=== PATIENT | male | born 1950 | race Asian ===

== ENCOUNTER 2017-04-04 06:33 | Inpatient (IN) | payer OTHER ==
[2017-04-04] VITALS (18 sets, daily range): BP systolic 114–156; BP diastolic 72–100; PULSE 61–69; RESP 11–17; TEMP 98.2; Ht 162.6 cm; Wt 63.8 kg
[~2017-04-04] VITALS: Ht 162.6 cm; Wt 63.8 kg
[~2017-04-04 06:33] MED LIST: ADV25050 INHALATION; ALBU8.5H3 INH; ASPI-664 PO; GEMF600T60 PO; LORA10TA3 PO; LOSA25TA5 PO
[2017-04-04] MEDS ORDERED: ONDANSETRON (ODT) 4 MG TAB ODT STA (07:17)
--- NOTE | 2017-04-04 07:39 | ERD ---
ER Documentation Chief Complaint Date/Time DATE: 04/04/17 TIME: 07:33 Chief Complaint headache with dizziness no trauma. no neuro deficit. no blurry vision (ONEYDA VARGAS NP) HPI This is a 66-year-old male, with past medical history for hypertension, hypercholesterolemia and asthma with generalized headache and dizziness, 2 days. Headache is generalized and patient rates pain 8/10. No nausea. Had 2 episodes of nonbloody, non bilious emesis 2 days ago. No vomiting today. Denies any weakness. Patient states he has bilateral foot numbness and tingling. No loss of sensation. Patient had recent cataract surgery to right eye 6 month ago. No loss of vision or change in vision. No Diplopia or photophobia. Patient has no history of headaches and states this headache came on suddenly. Denies this being the worst headache he's ever had or thunderclap quality headache. No facial droop, neck pain, or neck stiffness. Patient reports dizziness. no syncope or presyncope. worsening dizziness with lying down. No head trauma or injury. No recent fall. (ONEYDA VARGAS NP) ROS All systems reviewed and are negative except as per history of present illness. (ONEYDA AVRGAS NP) Medications Home Meds Reported Medications Losartan Potassium* (Losartan Potassium*) 25 Mg Tablet, 25 MG PO DAILY, TAB 08/21/16 Loratadine* (Loratadine*) 10 Mg Tablet, 10 MG PO DAILY, #30 TAB 08/21/16 Gemfibrozil* (Gemfibrozil*) 600 Mg Tablet, 600 MG PO BID, TAB 08/21/16 Aspirin* (Aspirin* EC) 81 Mg Tablet.dr, 81 MG PO DAILY, TAB 08/21/16 Salmeterol Xinaf/Fluticasone* (Advair*) 250-50 Diskus Inhaler, 1 INH INHALATION BID, #1 INHALER 08/21/16 Albuterol Sulfate* (Proair HFA*) 8.5 Gm Hfa.aer.ad, 2 PUFF INH Q6H Y for WHEEZING AND SOB, #1 INHALER 08/21/16 Allergies Allergies: Coded Allergies: No Known Allergy (Unverified , 08/21/16) PMhx/Soc Medical and Surgical Hx: pt denies Surgical Hx History of Surgery: No Anesthesia Reaction: No Hx Neurological Disorder: No Hx Respiratory Disorders: Yes (ASTHMA) Hx Cardiac Disorders: Yes (HTN,HYPERLIPIDEMIA,) Hx Psychiatric Problems: No Hx Miscellaneous Medical Probl: No Hx Alcohol Use: No Hx Substance Use: No Hx Tobacco Use: No Smoking Status: Never smoker (ONEYDA VARGAS NP) Physical Exam Vitals Vital Signs Date Time Temp Pulse Resp B/P Pulse Ox O2 Delivery O2 Flow Rate FiO2 04/04/17 09:20 75 18 171/88 99 Room Air 04/04/17 08:40 72 18 186/97 99 Room Air 04/04/17 07:42 98.4 78 16 191/103 99 Room Air 04/04/17 06:37 98.3 79 21 183/98 98 (RITU BECKWITH) Physical Exam Const: Alert, [id number] Head: Atraumatic Eyes: left pupuil is round, and reactive to light. right pupil is oval shaped, fixed and non reactive to light. postoperative changes. ENT: Normal External Ears, Nose and Mouth. Neck: Full range of motion..~ No meningismus. Resp: Clear to auscultation bilaterally Cardio: Regular rate and rhythm, no murmurs Abd: Soft, non tender, non distended. Normal bowel sounds Skin: No petechiae or rashes Back: No midline or flank tenderness Ext: No cyanosis, or edema Neur: Awake and alert. strength equal to bilateral upper extremities. sensation intact. Psych: Normal Mood and Affect (ONEYDA VARGAS NP) Result Diagram: 04/04/17 0835 04/04/17 0835 Results 24 hrs Laboratory Tests Test 04/04/17 08:35 White Blood Count 7.210^3/ul Red Blood Count 4.4810^6/ul Hemoglobin 14.3g/dl Hematocrit 42.6% Mean Corpuscular Volume 95.1fl Mean Corpuscular Hemoglobin 31.9pg Mean Corpuscular Hemoglobin Concent 33.6g/dl Red Cell Distribution Width 11.9% Platelet Count 45294^3/UL Mean Platelet Volume 10.5fl Neutrophils % 76.6% Lymphocytes % 17.4% Monocytes % 4.6% Eosinophils % 0.6% Basophils % 0.4% Nucleated Red Blood Cells % 0.0/100WBC Neutrophils # 5.510^3/ul Lymphocytes # 1.310^3/ul Monocytes # 0.310^3/ul Eosinophils # 0.010^3/ul Basophils # 0.010^3/ul Nucleated Red Blood Cells # 0.010^3/ul Sodium Level 139mmol/L Potassium Level 4.6mmol/L Chloride Level 98mmol/L Carbon Dioxide Level 29mmol/L Anion Gap 17 Blood Urea Nitrogen 17mg/dl Creatinine 0.84mg/dl Glucose Level 118mg/dl Calcium Level 9.9mg/dl Total Bilirubin 0.7mg/dl Direct Bilirubin 0.00mg/dl Indirect Bilirubin 0.7mg/dl Aspartate Amino Transf (AST/SGOT) 25IU/L Alanine Aminotransferase (ALT/SGPT) 32IU/L Alkaline Phosphatase 69IU/L Total Protein 8.4g/dl Albumin 4.8g/dl Globulin 3.60g/dl Albumin/Globulin Ratio 1.33 Current Medications Medications (Trade) Dose Ordered Sig/Stacia Route PRN Reason Start Time Stop Time Status Last Admin Dose Admin Ondansetron HCl (Zofran Odt) 4 mg ONCE STAT ODT 04/04/17 07:17 04/04/17 07:18 DC 04/04/17 07:25 Losartan Potassium 50 mg 50 mg ONCE ONCE PO 04/04/17 08:00 04/04/17 08:01 DC 04/04/17 08:05 Levetiracetam (Keppra 500 Mg/ 100ml (Pmx)) 100 ml @ 400 mls/hr ONCE STAT IVPB 04/04/17 08:28 04/04/17 08:42 DC 04/04/17 08:54 Labetalol HCl (Labetalol) 20 mg ONCE ONCE IV 04/04/17 09:30 04/04/17 09:31 DC 04/04/17 09:22 (RITU BECKWITH) Procedures/MDM Patient: MELODY ARREOLA : 1950 Age: 66 Sex: M MR #: [id number] DOS: 04/04/17 0717 Ordering MD: ONEYDA VARGAS NP Location: [facility] Room/Bed: PROCEDURE: CT Brain without contrast. CLINICAL INDICATION: Neurologic deficit TECHNIQUE: A CT of the brain was performed on multidetector high-resolution CT scanner utilizing axial sections from the skull base through the vertex without contrast. One or more of the following dose reduction techniques were used: Automated exposure control, Adjustment of the mA and/or kV according to patient size, and/or use of iterative reconstruction technique. DOSE: CTDI = 50 mGy and the DLP = 818 mGy-cm. COMPARISON: None available FINDINGS: Bilateral cerebral convexity hyperdense subdural hematomas measuring 19 mm on the right and 12 mm on the left. There is subfalcine herniation of the right cingulate gyrus and 5 mm leftward midline shift. The lateral and third ventricles are compressed. Old right cerebellar infarct noted. The cerebral albarran-white differentiation is grossly preserved. Paranasal sinus mucosal thickening. IMPRESSION: Bilateral acute/subacute cerebral convexity subdural hematomas measuring 19 mm on the right and 12 mm on the left. There is subfalcine herniation of the right cingulate gyrus and 5 mm leftward midline shift. Chronic right cerebellar infarct. A critical call report attempt was made to Dr. VARGAS at 04/04/2017 8:21:59 AM who was not available at this time. Findings discussed with MT Cabello. MDM: 66-year-old male, with past medical history for hypertension, hypercholesterolemia and asthma, presents to the emergency department for generalized headache with dizziness 2 days. Patient has no history of headaches. This headache came on suddenly. Physical exam reveals fixed right pupil. Strength equal bilateral to upper extremities. No nausea or vomiting. BP upon arrival 183/98 mm Hg then 191/103 mm Hg. Patient takes Losartan at home and did not take this this morning. Given patient Losartan 50 mg P.O while in the ED for elevated BP. Consulted Dr. Beckwith regarding this patient who also examined patient at bedside. Instructed to order CT head and oral Zofran [address] head reviewed by radiologist as bilateral acute cerebral convexity subdural hematomas measuring 19mm on the right and 12mm on the left. 5 mm leftward midline shift. Discussed findings with Dr. Beckwith. Patient will be moved to ED1 for additional management and higher level of care. (ONEYDA VARGAS NP) After evaluating the patient with the MT, patient went to CT scan. CT was reviewed demonstrating evidence of bilateral subdural hematomas. Patient was then transferred to the main emergency department where he was placed on manager cardiac cath and pulse oximetry observation. He was noted to be hypertensive. This was treated with labetalol. His blood pressure began to respond. Neurologically, patient remains awake, alert, oriented with a GCS of 15. He has a nonfocal motor and sensory examination with no focal neurologic findings. Consultations: Neurosurgical consultation was obtained Hospitalist consultation was obtained for admission. Diagnostic impression: Bilateral subdural hematomas Hypertension Aspirin therapy Medical decision makin-year-old male on aspirin therapy presents essentially with an atraumatic bilateral subdural hematoma that appears to be subacute/chronic in nature. He does however demonstrate evidence of fairly significant findings on a CT scan that will require operative management likely. Patient will require admission to the hospital for blood pressure control, consideration of platelet transfusion. In my conversations with the neurosurgeon, emergent platelet transfusion will not be ordered at this time given the chronicity of the patient 's subdurals. Coagulation profile is pending at this time, but patient tells me he is on no further anticoagulant medications. Patient will continue to be admitted for further evaluation. Critical care time greater than 35 minutes maintaining control of the patient's hemodynamic and neurologic status. (RITU BECKWITH) Departure Diagnosis: Primary Impression: Subdural hematoma Condition: Serious ONEYDA VARGAS NP April 04, 2017 07:39 RITU BECKWITH April 04, 2017 09:56
[2017-04-04] MEDS ORDERED: LOSARTAN 50 MG TAB PO ONE (08:00)
--- NOTE | 2017-04-04 08:25 | RADRPT ---
PROCEDURE: CT Brain without contrast. CLINICAL INDICATION: Neurologic deficit TECHNIQUE: A CT of the brain was performed on multidetector high-resolution CT scanner utilizing a xial sections from the skull base through the vertex without contrast. One or more of the following dose reduction techniques were used: Automated exposure control, Adjustment of the mA and/or kV acc ording to patient size, and/or use of iterative reconstruction technique. DOSE: CTDI = 50 mGy and the DLP = 818 mGy-cm. COMPARISON: None available FINDINGS: Bilateral cerebral convexity hyperdense subdural hematomas measuring 19 mm on the right and 12 mm on the left. There is subfalcine herniation of the right cingulate gyrus and 5 mm leftward midline sh ift. The lateral and third ventricles are compressed. Old right cerebellar infarct noted. The cere bral albarran-white differentiation is grossly preserved. Paranasal sinus mucosal thickening. IMPRESSION: Bilateral acute/subacute cerebral convexity subdural hematomas measuring 19 mm on the right and 12 m m on the left. There is subfalcine herniation of the right cingulate gyrus and 5 mm leftward midlin e shift. Chronic right cerebellar infarct. A critical call report attempt was made to Dr. VARGAS at 04/04/2017 8:21:59 AM who was not available at this time. Findings discussed with MT Cabello. RPTAT: AA .Matheus Hope MD, MD Date Time Electronically viewed and signed by .Matheus Hope MD, MD on 04/04/2017 08:24 .T/
[2017-04-04] MEDS ORDERED: LEVETIRACETAM 500 MG (PMX) 100 ML IVPB STA (08:28)
[2017-04-04 08:43] LABS: ADD SCAN DIFF NO
[2017-04-04 09:13] LABS: ALBUMIN 4.8 g/dl (3.3-4.9); POTASSIUM 4.6 mmol/L (3.5-5.1)
[2017-04-04 09:16] LABS: ALBUMIN/GLOBULIN RATIO 1.33; BILIRUBIN,INDIRECT 0.7 mg/dl (0-1.1); BILIRUBIN,TOTAL 0.7 mg/dl (0.2-1.3); CALCIUM 9.9 mg/dl (8.4-10.2); CREATININE 0.84 mg/dl (0.61-1.24); TOTAL PROTEIN 8.4 g/dl (6.1-8.1)
[2017-04-04 09:23] LABS: BASOPHILS % 0.4 % (0.0-2.0); EOSINOPHILS % 0.6 % (0.0-7.0); HEMATOCRIT 42.6 % (42.0-52.0); HEMOGLOBIN 14.3 g/dl (14.0-18.0); LYMPHOCYTES # 1.3 10^3/ul (0.8-2.9); LYMPHOCYTES % 17.4 % (15.0-51.0); MEAN CORPUSCULAR HEMOGLOBIN 31.9 pg (29.0-33.0); MEAN CORPUSCULAR HGB CONC 33.6 g/dl (32.0-37.0); MEAN CORPUSCULAR VOLUME 95.1 fl (82.0-101.0); MEAN PLATELET VOLUME 10.5 fl (7.4-10.4); MONOCYTE # 0.3 10^3/ul (0.3-0.9); MONOCYTES % 4.6 % (0.0-11.0); NEUTROPHIL # 5.5 10^3/ul (1.6-7.5); NEUTROPHILS % 76.6 % (39.0-77.0); PLATELET COUNT 294 10^3/UL (140-415); RED BLOOD COUNT 4.48 10^6/ul (4.70-6.10); RED CELL DISTRIBUTION WIDTH 11.9 % (11.5-14.5); WHITE BLOOD COUNT 7.2 10^3/ul (4.8-10.8)
[2017-04-04] MEDS ORDERED: LABETALOL HCL 20MG INJ IV ONE ×2 (09:30→10:00)
--- NOTE | 2017-04-04 09:39 | RADRPT ---
PROCEDURE: XR Chest. CLINICAL INDICATION: Headache TECHNIQUE: Chest AP portable. COMPARISON: No comparison available. FINDINGS: The mediastinal structures are unremarkable. The heart is normal in size and configuration. The pu lmonary vascularity is normal. The lung gonzales are unremarkable. No consolidation is identified. The pleural spaces are unremarkable. The axial skeleton is unremarkable. IMPRESSION: No active intrathoracic disease. RPTAT: HGDB .Jac Singh MD, MD Date Time Electronically viewed and signed by .Jac Singh MD, on 04/04/2017 09:38 .B/
[2017-04-04 10:25] LABS: INR 0.98
[2017-04-04 10:26] LABS: PARTIAL THROMBOPLASTIN TIME 27.8 Sec (25.0-35.0)
[2017-04-04] MEDS ORDERED: LABETALOL HCL 20MG INJ IV PRN (12:30)
[2017-04-04] MEDS ORDERED: ACETAMINOPHEN 325 MG TAB PO PRN (12:30)
[2017-04-04] MEDS ORDERED: ALBUTEROL/IPRATROPIUM (NEB) 3 ML AMP HHN PRN (12:30)
[2017-04-04] MEDS ORDERED: ONDANSETRON 4 MG INJ IV PRN (12:30)
[2017-04-04] MEDS ORDERED: HYDROCODONE/APAP (5/325) TAB PO PRN (12:30)
[2017-04-04] MEDS ORDERED: DOCUSATE SODIUM 100 MG CAP PO PRN (12:30)
[2017-04-04] MEDS ORDERED: NACL 0.9% 3 ML SYG IV SCH (12:30)
[2017-04-04] MEDS: DEXTROSE 5%-0.45% NACL 1,000 ML IV SCH ×2 (12:31→23:55)
[2017-04-04] MEDS: morphine 2 MG INJ IV PRN ×3 (13:08→20:42)
[2017-04-04 13:15] LABS: COLLAGEN/ADP 89 Secs. (40-147)
--- NOTE | 2017-04-04 14:13 | CONS ---
DATE OF ADMISSION: 04/04/2017 DATE OF CONSULTATION: 04/04/2017 TYPE OF CONSULTATION: NEUROSURGICAL CONSULT REQUESTING PHYSICIAN: Dr. Beckwith INDICATION FOR CONSULTATION: Subdural hematomas. HISTORY OF PRESENT ILLNESS: The patient is a 66-year-old right-handed male with history of hypertension, asthma, hypercholesterolemia, with complaints of headache, dizziness, nausea and vomiting for 2 days. The patient reports a diffuse headache 7 to 8/10 in severity. The patient reportedly fell at work yesterday, according to the patient's and the patient. The patient reportedly did not have any symptoms prior to this fall and denies having any trauma prior to this fall. He did not lose consciousness, per report. The patient currently denies any numbness, tingling, weakness, bowel or bladder issues. The family states that he normally alert and has normal mental status. The patient does not have any significant history of prior headaches. CT of the head showed bilateral subdural hematomas, subacute, right greater than left with right to left shift. REVIEW OF SYSTEMS: A 12-point review of systems performed. Pertinent positives and negatives listed in history of present illness and below. CONSTITUTIONAL: Denies fevers, chills, or weight loss. HEMATOLOGIC: Denies history of easy bruising or bleeding. MEDICATIONS: Patient's medications include: 1. Losartan 25 mg p.o. daily. 2. Loratadine 10 mg daily. 3. Gemfibrozil 600 mg b.i.d. 4. Aspirin 81 mg p.o. daily. 5. Advair 1 inhalation b.i.d. 6. Albuterol ProAir HFA 8.5 mg 2+ q.6h. ALLERGIES: NO KNOWN DRUG ALLERGIES. PAST SURGICAL HISTORY: Denies. PAST MEDICAL HISTORY: Asthma, hypertension, hyperlipidemia. SOCIAL HISTORY: The patient is a nonsmoker, nondrinker. Denies illicit drug use. The patient is . PHYSICAL EXAMINATION: VITAL SIGNS: The patient's temperature is 98.2, pulse 64, respirations 18, blood pressure 129/75, saturating 100% on room air. GENERAL: The patient is a well-developed, well-nourished elderly male lying in the hospital bed in no acute distress. HEAD AND NECK: The patient is normocephalic, atraumatic. He has no Valle sign , periorbital ecchymoses, otorrhea, or rhinorrhea. CARDIAC: Regular rate and rhythm. LUNGS: Clear to auscultation. ABDOMEN: Nontender, nondistended, soft. EXTREMITIES: No clubbing, cyanosis, or edema. NEUROLOGIC: The patient is awake, alert, and oriented x3. He is somnolent and will fall asleep, but when awakened, he is attentive, alert, and follows commands readily and appropriately. He speaks primarily Tagalog and his family helps translate, though he does understand Greenlandic. Cranial nerves II through XII are serially tested and are intact, specifically II: Visual gonzales grossly full to confrontation and grossly normal visual acuity. Cranial nerves III, IV , and : Patient's pupils are reactive, but he has some anisocoria, as he had recent cataract surgery on his right eye which is slightly irregular but reactive, 5 to 4 mm and on the left it is 3 to 2 mm. Cranial nerve V: Normal facial sensation bilaterally. Cranial nerve VII: Face symmetrical dynamically and statically. Cranial nerve VIII: Grossly normal auditory acuity to normal voice and finger rub. Cranial nerve IX: Symmetrical palate raise. Cranial nerve X: Symmetrical palate raise. Cranial nerve XI: There is 5/5 sternocleidomastoid shoulder shrug. Cranial nerve XII: No tongue deviation when protruded. MOTOR: Examination is 5/5 bilateral upper and lower extremities. He does not have a pronator drift. Sensation is grossly intact to light touch and deep tendon reflexes were 2+ throughout. He has no clonus, Babinski, or Gilberto sign. Gait not assessed secondary to condition. LABORATORIES: Sodium 139, BUN and creatinine was 17 and 0.84. His glucose 118. Coagulation profile: PT was 13 with an INR of 0.98 and an APTT of 27.8. His white count was 7.2, hemoglobin 13.4, platelets 294. There is no shift. REVIEW OF RADIOGRAPHIC RESULTS: I reviewed the patient's CT scan as well as the radiologist's report. The CT scan performed today showed bilateral acute/ subacute convexity subdural hematomas measuring 19 mm on the right and 12 mm on the left. There is subfalcine herniation of the right cingulate gyrus and a 5 mm leftward midline shift. The patient has evidence of a chronic right cerebellar infarct. I agree with this interpretation. However, I would not classify the blood present as being acute in nature. This appears to be subacute, as I did not see any large acute blood. I did not see any clear how membranes present and the right subdural is larger than the left subdural. ASSESSMENT AND PLAN: A 66-year-old male with bilateral subdural hematomas. I discussed the patient's signs, symptoms, physical examination and radiographic findings with him and his family. The patient has a subdural hematoma that is causing the likely source of his symptoms. I would like an MRI on the patient to better assess for the subdural space; however, there does not appear to be any underlying mass or lesion that may have caused this. The subdural hematoma appears subacute and I doubt that this occurred from a trauma that reportedly occurred yesterday. It is not clear if the aspirin that the patient is on is likely potentiating his bleeding; however, I would like to check a platelet function assay to assess the patient's platelet function. I explained that these lesions at this size likely would not improve without surgical intervention definitely for the right lesion. I discussed the treatment with steroids is a possibility, but given the size and the mass effect, I would not leave treatment simply with this modality, and believe surgical intervention is indicated. I believe the muarice holes may be adequate, given the subacute nature of the bleed, although a craniotomy may be necessary, especially on the right. I discussed the risks, benefits, alternatives of surgical intervention for this patient. Currently, the patient appears stable. We will continue with ICU observation and depending on the patient's platelet function analysis, I will give platelets if it is abnormal and recheck tomorrow. Otherwise, the patient will likely go to the OR tomorrow if his platelet function assay appears to be within normal limits. Obviously, if the patient clinically changes, reconsideration for taking the patient sooner will be given. The patient and his family express understanding and agreement with this plan of care. Dictated By: PATRICIA HIGUERA MD, LG/CIELO Conf#: [id number] DID#: [id number] CC: RITU BECKWITH;*EndCC* MTDD
--- NOTE | 2017-04-04 15:54 | RADRPT ---
PROCEDURE: MR Brain without contrast. CLINICAL INDICATION: Subdural hematoma TECHNIQUE: An MRI of the brain was performed on a high-resolution MR scanner utilizing the followi ng sequences: Sagittal and axial T1 weighted, axial T2 weighted, axial FLAIR, coronal GRE, and axial diffusion weighted with ADC mapping. Images were reviewed high-resolution PACS workstation. No con trast was administered. COMPARISON: Head CT earlier today FINDINGS: Bilateral cerebral convexity mixed signal subdural hematomas measuring 19 mm on the right and 12 mm on the left are similar size to the CT head earlier today. There is bilateral cerebral sulcal efface ment, subfalcine herniation of the right cingulate gyrus and 5 mm leftward midline shift. The latera l and third ventricles are compressed. Old right cerebellar infarct noted. No evidence of an acute i nfarct. The cerebral albarran-white differentiation is grossly preserved. The major proximal intracrani al flow voids are intact suggesting there patency. Paranasal sinus mucosal thickening. The right oc ular lens is thin which could be due to prior lens replacement surgery. IMPRESSION: Bilateral subacute cerebral convexity subdural hematomas measuring 19 mm on the right and 12 mm on t he left. There is bilateral cerebral sulcal effacement, subfalcine herniation of the right cingulate gyrus and 5 mm leftward midline shift. Chronic right cerebellar infarct. No evidence of an acute infarct. RPTAT: AA .Mathesu Hope MD, MD Date Time Electronically viewed and signed by .Matheus Hope MD, on 04/04/2017 15:53 .T/
[2017-04-04] MEDS: LABETALOL HCL 20MG INJ IV PRN (16:24)
--- NOTE | 2017-04-04 17:50 | HP ---
DATE OF ADMISSION: 04/04/2017 CHIEF COMPLAINT: Headache, or dizziness. HISTORY OF PRESENT ILLNESS: The patient is a 66-year-old male with a history of hypertension and dy slipidemia and as the patient presents with headache, dizziness for 2 days now. The headache is gen eralized. The patient has no nausea. He does state that he hit his head the other day while walkin g. He did not fall he just hit his head on top of an overpass as he was walking. The patient had a brain CT that showed bilateral subacute subdural hematomas. There is some subfalcine herniation of the right cingulate gyrus and 5 mm left midline shift. There is chronic right cerebellar infarct n oted. The patient was seen by Dr. Blankenship who is currently recommending surgical intervention with bur hole placement. The patient has no other complaints at this time. The family denies any change in mentation. PAST MEDICAL HISTORY: Hypertension. PAST SURGICAL HISTORY: Cataract surgery. HOME MEDICATIONS: 1. Albuterol. 2. Aspirin. 3. Gemfibrozil. 4. Loratadine. 5. Losartan. 6. Advair. ALLERGIES: KNOWN DRUG ALLERGIES. FAMILY HISTORY: Noncontributory. SOCIAL HISTORY: Denies any alcohol, tobacco or drugs. REVIEW OF SYSTEMS: A 12-point review of systems negative except as mentioned in HPI. PHYSICAL EXAMINATION: VITAL SIGNS: Temperature is 97.6, pulse 66, respiratory rate 13, BP is 155/84, saturation 100% on 2 liters. GENERAL: No acute distress, alert, somewhat oriented to where he is. Ultimately disoriented to the year. HEENT: Normocephalic, atraumatic. Pupils equal, round, reactive to light. LUNGS: Clear to auscultation. CARDIOVASCULAR: Regular rate and rhythm. ABDOMEN: Nondistended, nontender, soft. EXTREMITIES: No clubbing, cyanosis, or edema. LABORATORIES: Hemoglobin 7.3, hemoglobin is 14.3, platelets are 294. Chemistry within normal limit s except for anion gap 17, total protein 8.4. INR is 0.98. DIAGNOSTICS: Brain CT, once again, shows bilateral acute/subacute cerebral convexity subdural hemat zack measuring 19 mm in the right and 12 mm on the left. There is a subfalcine herniation on the rig ht cingulate gyrus and a 5 mm leftward midline shift, chronic right cerebellar infarct noted. Chest x-ray shows no active disease. ASSESSMENT AND PLAN: 1. Bilateral subdural hematomas. The patient has already been evaluated by neurosurgery with plans for bur hole placement. The patient is on aspirin. Aspirin will be held. The patient will have a platelet function analysis test. The patient will likely go to OR tomorrow if platelet function as say appears to be within normal limits. Will give Keppra for seizure prophylaxis. Keep the patient n.p.o. 2. Hypertension. The patient's blood pressure is currently stable. Give labetalol p.r.n. Keep the patient n.p.o. 3. Prophylaxis. Sequential compression devices. Dictated By: DAVID DUMONT/CIELO Conf#: [id number] DID#: [id number]
[2017-04-04] MEDS: LEVETIRACETAM 500 MG (PMX) 100 ML IVPB SCH (20:56)
[2017-04-04] MEDS ORDERED: SOD CHLORIDE 0.9% 250 ML IV* ONE (23:03)
[2017-04-05] VITALS (38 sets, daily range): BP systolic 109–169; BP diastolic 64–107; PULSE 59–90; RESP 9–24
[2017-04-05 05:39] LABS: ADD SCAN DIFF NO
[2017-04-05 05:53] LABS: BASOPHILS % 0.3 % (0.0-2.0); EOSINOPHILS # 0.1 10^3/ul (0.0-0.5); EOSINOPHILS % 0.8 % (0.0-7.0); HEMOGLOBIN 13.1 g/dl (14.0-18.0); LYMPHOCYTES # 1.4 10^3/ul (0.8-2.9); LYMPHOCYTES % 20.2 % (15.0-51.0); MEAN CORPUSCULAR HEMOGLOBIN 32.3 pg (29.0-33.0); MEAN CORPUSCULAR HGB CONC 34.5 g/dl (32.0-37.0); MEAN CORPUSCULAR VOLUME 93.6 fl (82.0-101.0); MEAN PLATELET VOLUME 10.3 fl (7.4-10.4); MONOCYTE # 0.4 10^3/ul (0.3-0.9); MONOCYTES % 5.9 % (0.0-11.0); NEUTROPHIL # 5.2 10^3/ul (1.6-7.5); NEUTROPHILS % 72.5 % (39.0-77.0); PLATELET COUNT 297 10^3/UL (140-415); RED BLOOD COUNT 4.06 10^6/ul (4.70-6.10); RED CELL DISTRIBUTION WIDTH 11.7 % (11.5-14.5); WHITE BLOOD COUNT 7.1 10^3/ul (4.8-10.8)
[2017-04-05 06:13] LABS: CHOL/HDL RATIO 3.2 RATIO; CREATININE 0.71 mg/dl (0.61-1.24); PHOSPHORUS 2.9 mg/dl (2.5-4.9); POTASSIUM 3.7 mmol/L (3.5-5.1)
[2017-04-05] MEDS: morphine 2 MG INJ IV PRN ×2 (06:49→10:36)
[2017-04-05] MEDS ORDERED: ROCURONIUM 50 MG INJ ONE (07:00)
[2017-04-05] MEDS ORDERED: CEFAZOLIN 1 GM INJ ONE (07:00)
[2017-04-05] MEDS ORDERED: SUCCINYLCHOLINE CHLORIDE 100 MG/5 ML SYG IV ONE (07:00)
[2017-04-05] MEDS: LEVETIRACETAM 500 MG (PMX) 100 ML IVPB SCH ×2 (08:19→20:29)
--- NOTE | 2017-04-05 08:59 | CONS ---
Date/Time of Note Date/Time of Note DATE: 04/05/17 TIME: 08:54 Assessment/Plan Assessment/Plan Chief Complaint/Hosp Course 66 year-old male with bilateral subacute subdural hematomas. Had been on ASA 81 mg; initial PFA elevated. Given platelets and repeat corrected. D/W family and patient risk, benefits and alternative of surgery and theyexpressed understanding and agreement with this plan of care. . Will go to OR later today for bilateral maurice holes. Problems: Consultation Date/Type/Reason Admit Date/Time April 04, 2017 at 09:46 Initial Consult Date 24 HR Interval Summary Free Text/Dictation Patient reports stable headache. Denies nausea, vomiting or weakness. 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2 Monocytes % 5.9 Eosinophils % 0.8 Basophils % 0.3 Nucleated Red Blood Cells % 0.0 Neutrophils # 5.2 Lymphocytes # 1.4 Monocytes # 0.4 Eosinophils # 0.1 Basophils # 0.0 Nucleated Red Blood Cells # 0.0 Sodium Level 139 Potassium Level 3.7 Chloride Level 100 Carbon Dioxide Level 26 Anion Gap 17 H Blood Urea Nitrogen 15 Creatinine 0.71 Glucose Level 126 Hemoglobin A1c 5.8 Calcium Level 9.0 Phosphorus Level 2.9 Magnesium Level 2.0 Triglycerides Level 91 Cholesterol Level 135 LDL Cholesterol, Calculated 75 HDL Cholesterol 42 Cholesterol/HDL Ratio 3.2 Lab Scanned Report BLOOD TRANSFUSION Medications Medications Current Medications Dextrose/Sodium Chloride (D5-1/2ns) 1,000 ml @ 100 mls/hr Q10H IV Last administered on 04/04/17 23:55; Admin Dose 100 MLS/HR; Start 04/04/17 at 12:06 Ondansetron HCl (Zofran Inj) 4 mg Q6H PRN IV NAUSEA AND/OR VOMITING; Start at 12:30 Acetaminophen (Tylenol Tab) 650 mg Q6H PRN PO PAIN LEVEL 1-3 OR FEVER; Start at 12:30 Acetaminophen/ Hydrocodone Bitart ([place] (5/325)) 1 tab Q6H PRN PO MODERATE PAIN LEVEL 4-6; Start 04/04/17 at 12:30 Morphine Sulfate (morphine) 2 mg Q4H PRN IV SEVERE PAIN LEVEL 7-10 Last administered on 04/05/17 06:49; Admin Dose 2 MG; Start 04/04/17 at 12:30 Docusate Sodium (Colace) 100 mg Q12H PRN PO CONSTIPATION; Start 04/04/17 at 12: 30 Zolpidem Tartrate 5 mg 5 mg QHS PRN PO SLEEP; Start 04/04/17 at 12:30 Levetiracetam (Keppra 500 Mg/ 100ml (Pmx)) 100 ml @ 400 mls/hr Q12 IVPB Last administered on 04/05/17 08:19; Admin Dose 400 MLS/HR; Start 04/04/17 at 21:00 Labetalol HCl (Labetalol) 20 mg Q2H PRN IV SBP >150 Last administered on 16:24; Admin Dose 20 MG; Start 04/04/17 at 14:30 Procedures Procedures MRI reviewed. Stable SDH bilaterally, no significant membranes. No other lesions. PATRICIA HIGUERA MD April 05, 2017 08:59
[2017-04-05] MEDS: DEXTROSE 5%-0.45% NACL 1,000 ML IV SCH ×2 (10:00→18:22)
[2017-04-05] MEDS ORDERED: BUPIVACAINE 0.5%/EPI (SDV) 30 ML INJ ONE (13:01)
[2017-04-05] MEDS ORDERED: GELATIN SIZE 100 SPONGE ONE (13:01)
[2017-04-05] MEDS ORDERED: BACITRACIN/POLYMYXIN 28.35 GM OINT TOP ONE (13:02)
[2017-04-05] MEDS ORDERED: THROMBIN 5000 UNIT VIAL ONE (13:02)
[2017-04-05] MEDS ORDERED: PROPOFOL 20 ML ONE (13:12)
[2017-04-05] MEDS ORDERED: LIDOCAINE 2% (SDV) 5 ML INJ ONE (13:12)
[2017-04-05] MEDS: LABETALOL HCL 20MG INJ IV PRN (13:15)
--- NOTE | 2017-04-05 13:21 | HPN ---
Date/Time of Note Date/Time of Note DATE: 04/05/17 TIME: 13:21 Interval H&P Admission Note Pt. seen H&P reviewed: No system changes PATRICIA HIGUERA MD April 05, 2017 13:21
[2017-04-05] MEDS ORDERED: ONDANSETRON 4 MG INJ ONE (14:45)
[2017-04-05] MEDS ORDERED: DEXAMETHASONE 4 MG/ML 1 ML INJ ONE (14:45)
[2017-04-05] MEDS ORDERED: NEOSTIGMINE 3 MG/3 ML SYRINGE ONE (15:10)
[2017-04-05] MEDS ORDERED: GLYCOPYRROLATE 0.4 MG INJ ONE (15:10)
[2017-04-05] MEDS ORDERED: ONDANSETRON 4 MG INJ IV PRN (15:30)
[2017-04-05] MEDS ORDERED: HYDROmorphONE 1 MG/ML SYG IV PRN (15:30)
[2017-04-05] MEDS ORDERED: hydrALAzine 20 MG INJ IV PRN (15:30)
[2017-04-05] MEDS ORDERED: FENTAnyl 50 MCG/ML VIAL IV PRN (15:30)
--- NOTE | 2017-04-05 16:58 | OPR ---
Date/Time of Note Date/Time of Note DATE: 04/05/17 TIME: 16:55 Operative Report Procedure Date: April 05, 2017 Preoperative Diagnosis bilateral subacute subdural hematomas Postoperative Diagnosis bilateral subacute subdural hematomas Operation Performed 1. [place] holes for evacuation of right subdural hematoma. 2. [place] holes for evacuation of left subdural hematoma. Surgeon: PATRICIA HIGUERA MD Anesthesia: general Anesthesiologist: KIMMY ANDREA MD Estimated Blood Loss: 10 - 50 ml's Specimens none Tubes/Drains bilateral subdural drains. Complications: None Pt Condition Post Procedure: stable Disposition: PACU Operative\Procedure Findings bilateral subacute subdural hematomas. PATRICIA HIGUERA MD April 05, 2017 16:58
[2017-04-05] MEDS ORDERED: CEPASTAT LOZENGE MT PRN (17:00)
[2017-04-05] MEDS ORDERED: DIPHENHYDRAMINE 50 MG INJ IV PRN (17:00)
[2017-04-05] MEDS ORDERED: DIPHENHYDRAMINE 25 MG CAP PO PRN (17:00)
[2017-04-05] MEDS ORDERED: ACETAMINOPHEN 325 MG TAB PO PRN (17:00)
--- NOTE | 2017-04-05 17:40 | PN ---
Date/Time of Note Date/Time of Note DATE: 04/05/17 TIME: 17:38 Assessment/Plan VTE Prophylaxis VTE Prophylaxis Intervention: SCD's Lines/Catheters IV Catheter Type (from Nrs): Peripheral IV Assessment/Plan Chief Complaint/Hosp Course 1. Bilateral subdural hematomas status bilateral rales postop day #0 Follow-up with neurosurgery recommendations Continue Keppra 2. Hypertension-stable Continue labetalol as needed 3. Prophylaxis-Sequential compression devices Problems: Subjective 24 Hr Interval Summary Constitutional: no complaints Exam/Review of Systems Vital Signs Vitals Vital Signs Date Time Temp Pulse Resp B/P Pulse Ox O2 Delivery O2 Flow Rate FiO2 04/05/17 16:00 86 04/05/17 13:15 15 153/87 96 Room Air 04/05/17 12:00 97.8 04/05/17 06:00 2.0 Intake and Output 04/04/17 04/04/17 04/05/17 15:00 23:00 07:00 Intake Total 250 ml 800 ml 755 ml Output Total 570 ml 440 ml 740 ml Balance -320 ml 360 ml 15 ml Exam Constitutional: alert Respiratory: clear to auscultation Cardiovascular: regular rate and rhythm Gastrointestinal: soft, No distended Musculoskeletal: nl extremities to inspection Results Result Diagram: 04/05/17 0445 04/05/17 0445 Results 24 hrs Laboratory Tests Test 04/05/17 04:45 04/05/17 05:42 White Blood Count 7.1 Red Blood Count 4.06 L Hemoglobin 13.1 L Hematocrit 38.0 L Mean Corpuscular Volume 93.6 Mean Corpuscular Hemoglobin 32.3 Mean Corpuscular Hemoglobin Concent 34.5 Red Cell Distribution Width 11.7 Platelet Count 297 Mean Platelet Volume 10.3 Neutrophils % 72.5 Lymphocytes % 20.2 Monocytes % 5.9 Eosinophils % 0.8 Basophils % 0.3 Nucleated Red Blood Cells % 0.0 Neutrophils # 5.2 Lymphocytes # 1.4 Monocytes # 0.4 Eosinophils # 0.1 Basophils # 0.0 Nucleated Red Blood Cells # 0.0 Platelet Func Collagen/Epinephrine 139 Platelet Function Collagen/ADP Sodium Level 139 Potassium Level 3.7 Chloride Level 100 Carbon Dioxide Level 26 Anion Gap 17 H Blood Urea Nitrogen 15 Creatinine 0.71 Glucose Level 126 Hemoglobin A1c 5.8 Calcium Level 9.0 Phosphorus Level 2.9 Magnesium Level 2.0 Triglycerides Level 91 Cholesterol Level 135 LDL Cholesterol, Calculated 75 HDL Cholesterol 42 Cholesterol/HDL Ratio 3.2 Lab Scanned Report BLOOD TRANSFUSION Medications Medications Current Medications Ondansetron HCl (Zofran Inj) 4 mg Q6H PRN IV NAUSEA AND/OR VOMITING; Start at 12:30 Acetaminophen/ Hydrocodone Bitart ([place] (5/325)) 1 tab Q6H PRN PO MODERATE PAIN LEVEL 4-6; Start 04/04/17 at 12:30 Morphine Sulfate (morphine) 2 mg Q4H PRN IV SEVERE PAIN LEVEL 7-10 Last administered on 04/05/17 10:36; Admin Dose 2 MG; Start 04/04/17 at 12:30 Docusate Sodium (Colace) 100 mg Q12H PRN PO CONSTIPATION; Start 04/04/17 at 12: 30 Zolpidem Tartrate 5 mg 5 mg QHS PRN PO SLEEP; Start 04/04/17 at 12:30 Levetiracetam (Keppra 500 Mg/ 100ml (Pmx)) 100 ml @ 400 mls/hr Q12 IVPB Last administered on 04/05/17 08:19; Admin Dose 400 MLS/HR; Start 04/04/17 at 21:00 Labetalol HCl 20 mg 20 mg Q2H PRN IV SBP >150 Last administered on 04/05/17 13 :15; Admin Dose 20 MG; Start 04/04/17 at 14:30 Cefazolin Sodium/ Dextrose (Ancef 2 Gm/50 ml (Pmx)) 50 ml @ 100 mls/hr Q8 IVPB ; Start 04/05/17 at 19:00 Morphine Sulfate (morphine) 2 mg Q2H PRN IV PAIN LEVEL 6-10; Start 04/05/17 at 17:00; Status UNV Acetaminophen/ Hydrocodone Bitart ([place] (5/325)) 1 tab Q6H PRN PO PAIN LEVEL 6 -10; Start 04/05/17 at 17:00; Status UNV Acetaminophen (Tylenol Tab) 650 mg Q6H PRN PO PAIN AND OR ELEVATED TEMP; Start 04/05/17 at 17:00 Diphenhydramine HCl (Benadryl) 25 mg Q6H PRN IV ITCHING; Start 04/05/17 at 17: 00; Status UNV Diphenhydramine HCl (Benadryl) 25 mg Q6H PRN PO ITCHING; Start 04/05/17 at 17: 00; Status UNV Pantoprazole 40 mg 40 mg DAILY@06 PO ; Start 04/06/17 at 06:00; Status UNV Potassium Chloride/Dextrose/ Sod Cl (D5-NS + KCl 20 Meq) 1,000 ml @ 100 mls/hr Q10H IV ; Start 04/05/17 at 16:46; Status UNV Phenol (Cepastat Lozenge) 1 lozenge PRN PRN MT SORE THROAT; Start 04/05/17 at 17:00; Status UNV DAVID MORSE April 05, 2017 17:40
[2017-04-05] MEDS: PANTOPRAZOLE (EC) 40 MG TAB PO SCH (18:00)
--- NOTE | 2017-04-05 18:26 | OPR ---
DATE OF OPERATION: 04/05/2017 PREOPERATIVE DIAGNOSIS: Bilateral subdural hematomas. POSTOPERATIVE DIAGNOSIS: Bilateral subdural hematomas. OPERATION PERFORMED: 1. Bur holes for evacuation of right subdural hematoma. 2. Bur holes for evacuation of left subdural hematoma. SURGEON: Patricia Blankenship MD ANESTHESIA: General. ANESTHESIOLOGIST: Dr. Coleen Guardado. ESTIMATED BLOOD LOSS: 25 mL. SPECIMEN: None. DRAINS PLACED: Bilateral subdural drains. COMPLICATIONS: None. FINDINGS: Bilateral subacute subdural hematomas. DISPOSITION: PACU. INDICATIONS: The patient is a 66-year-old male who has had progressive headaches and was found to have bilateral subacute subdural hematomas. The risks, benefits, and alternatives of surgical intervention were discussed with the patient who elected for surgery. DESCRIPTION OF PROCEDURE: The patient was brought to the OR. He was sedated, intubated, and anesthesia was successfully induced. A Acharya catheter was placed. Sequential compression devices were placed. Perioperative antibiotics were given. The patient was placed in the supine position on the operative table and both sides of his head were shaved and then sterilely prepped and draped. After surgical time-out, the procedure commenced. The patient's head was turned so the right side was up. A 10 blade knife was used to make 2 incisions, one more posterior, frontal/parietal and one frontal. Self- retaining retractors were placed. Bovie electrocautery was used to dissect through subcutaneous tissue and galea and periosteum down to the bone. Self- retaining retractors were placed. A recreation therapy teacher was then used to make 2 bur holes. The dura was then coagulated. The dura was opened with an 11 blade knife and immediately dark viscous fluid consistent with a subacute subdural hematoma came out under some pressure. Multiple rounds of irrigation were injected into the subdural space through both bur holes in a 360 degree trajectory through both bur holes to attempt hydrostatic pressure throughout the subdural cavity. This was performed until the irrigation came forth clear. Next, a ventricular catheter was passed again in the various trajectories into the cavity and injected with saline to flush out any residual subdural blood. The ventricular catheter was then left in the frontal bur hole, and tunneled through the skin and secured at the surface with 2-0 nylon sutures. A small piece of Duragen was placed over the posterior bur hole and some Trish cranial fixation plates were placed over the bur holes. The galea was then closed with 2-0 Vicryl sutures and janis were used for the skin. The drain was connected to a bag for drainage. Next, the patient's head was then turned so that the left side was facing up and the identical procedure performed on the left side. A 10 blade knife was used to make a frontal and posterior frontoparietal incision through the bone. Self-retaining retractors were placed. Bovie electrocautery was used to dissect through layers the scalp down to the bone. A recreation therapy teacher was used to make 2 bur holes. The dura was coagulated. Incision made with an 11 blade knife. Again, dark fluid consistent with a subacute hematoma came forth under some pressure. Again, multiple rounds of irrigation in all directions was performed into the subdural space until CSF came out clear. A ventricular catheter was then placed in various directions in the subdural space and again injected until the fluid came forth clear. The drain was then left in the subdural space and tunneled through the frontal bur hole, and through the skin and secured the surface with 2-0 nylon suture. Duragen was placed and 2 cranial fixation plates placed over the bur holes and secured with screws. The wounds were irrigated and then closed with 2-0 Vicryl in the subcutaneous tissue, 2-0 Vicryl in the galea and janis for the skin. Sterile dressings were applied and the patient was extubated and taken to recovery. Needle and cottonoid count were reported correct at the end of case. The 1 Ray-Shantal was unaccounted, but not felt to be left in the incision given the small size of the incisions; however, an x-ray was to be performed to rule out the presence of a Ray-Shantal and the x-ray image did not show evidence of a retained foreign body. Dictated By: PATRICIA BLANKENSHIP MD, LG/CIELO Conf#: [id number] DID#: [id number] CC: DAVID MORSE MD;*EndCC* MTDD
[2017-04-05] MEDS: CEFAZOLIN 2 GM/50 ML (PMX) 50 ML IVPB SCH (19:41)
[2017-04-05] MEDS: D5-NS + KCL 20 MEQ 1,000 ML IV SCH (19:41)
[2017-04-06] VITALS (24 sets, daily range): BP systolic 82–164; BP diastolic 62–92; PULSE 65–85; RESP 10–27
[2017-04-06] MEDS: morphine 2 MG INJ IV PRN (03:56)
[2017-04-06] MEDS: CEFAZOLIN 2 GM/50 ML (PMX) 50 ML IVPB SCH ×3 (05:26→22:38)
[2017-04-06] MEDS: PANTOPRAZOLE (EC) 40 MG TAB PO SCH (05:26)
[2017-04-06] MEDS: D5-NS + KCL 20 MEQ 1,000 ML IV SCH ×2 (05:26→15:00)
[2017-04-06 06:11] LABS: ADD SCAN DIFF NO
[2017-04-06 06:22] LABS: BASOPHILS % 0.2 % (0.0-2.0); EOSINOPHILS # 0.1 10^3/ul (0.0-0.5); EOSINOPHILS % 1.5 % (0.0-7.0); HEMATOCRIT 34.2 % (42.0-52.0); HEMOGLOBIN 11.7 g/dl (14.0-18.0); LYMPHOCYTES # 1.3 10^3/ul (0.8-2.9); LYMPHOCYTES % 15.4 % (15.0-51.0); MEAN CORPUSCULAR HEMOGLOBIN 32.7 pg (29.0-33.0); MEAN CORPUSCULAR HGB CONC 34.2 g/dl (32.0-37.0); MEAN CORPUSCULAR VOLUME 95.5 fl (82.0-101.0); MEAN PLATELET VOLUME 10.4 fl (7.4-10.4); MONOCYTE # 0.6 10^3/ul (0.3-0.9); MONOCYTES % 7.3 % (0.0-11.0); NEUTROPHIL # 6.6 10^3/ul (1.6-7.5); NEUTROPHILS % 75.4 % (39.0-77.0); PLATELET COUNT 286 10^3/UL (140-415); RED BLOOD COUNT 3.58 10^6/ul (4.70-6.10); RED CELL DISTRIBUTION WIDTH 11.9 % (11.5-14.5); WHITE BLOOD COUNT 8.7 10^3/ul (4.8-10.8)
[2017-04-06 06:56] LABS: POTASSIUM 3.6 mmol/L (3.5-5.1)
[2017-04-06 06:59] LABS: CREATININE 0.72 mg/dl (0.61-1.24)
--- NOTE | 2017-04-06 07:50 | PN ---
Date/Time of Note Date/Time of Note DATE: 04/06/17 TIME: 07:46 Assessment/Plan Lines/Catheters IV Catheter Type (from [facility]): A Line Acharya in Place (from [facility]): Yes Assessment/Plan Chief Complaint/Hosp Course 66 year-old male POD #1 s/p bilateral maurice holes for bilateral subacute subdural hematomas. Neurologically stable, non-focal exam. CT pending but clinically doing well. Cont. Subdural drainage, likely D/C drains tomorrow if drainage low and CT looks good. Cont.medical supportive care. D/C Acharya. advance diet. ween IV. Problems: Subjective 24 Hr Interval Summary Patient doing well. Reports pre-operative headaches improved. Only reports incisional pain. No other complaints. Exam/Review of Systems Vital Signs Vitals Vital Signs Date Time Temp Pulse Resp B/P Pulse Ox O2 Delivery O2 Flow Rate FiO2 04/06/17 06:00 66 12 131/72 100 Nasal Cannula 04/06/17 04:00 98.8 04/05/17 20:00 2.0 Intake and Output 04/05/17 04/05/17 04/06/17 14:59 22:59 06:59 Intake Total 2530 ml 475 ml 800 ml Output Total 1125 ml 925 ml 650 ml Balance 1405 ml -450 ml 150 ml Exam Constitutional: alert, oriented, well developed Psych: nl mood/affect Head: normocephalic, other (drains in place. low output. 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
[2017-04-06] MEDS: LEVETIRACETAM 500 MG (PMX) 100 ML IVPB SCH ×2 (09:04→21:14)
[2017-04-06] MEDS: HYDROCODONE/APAP (5/325) TAB PO PRN ×3 (09:11→23:11)
--- NOTE | 2017-04-06 09:22 | RADRPT ---
PROCEDURE: CT brain without contrast CLINICAL INDICATION: Subdural hematoma, status post evacuation TECHNIQUE: CT of the brain without contrast performed on a multidetector CT scanner, with multiplan ar reformats. One or more of the following dose reduction techniques were used: Automated exposure control, adjustment in mA and / or kV according to patient size, use of iterative reconstructive nahed hnique. CTDIvol = 44 mGy; DLP = 630 mGy-cm. COMPARISON: 04/04/2017 FINDINGS: Interval bilateral subdural evacuation performed with maurice hole craniotomies at the bilateral anteri or parietal calvaria with placement of bilateral subdural drains. Noted is overlying scalp swelling postoperative gas with janis. There are bilateral extra-axial collections overlying the frontal and parietal convexities, right greater than left. The collection on the right is predominately hyp odense with minimal intermediate density, and the collection on the left has mixed hypodense interme diate density components. The collection on the right measures up to 1.1 cm in thickness and the col lection on the left measures up to approximately 3 mm in thickness. There is postoperative pneumoce phalus in the frontal regions, right greater than left. There has been decrease in mass effect. There has been decrease in midline shift, now measuring up to 4 mm. 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 Otherwise albarran-white differentiation is preserved. Atherosclerotic calcifications of the intracranial internal carotid arteries are noted. Osseous structures are unremarkable. Mastoid air cells and imaged paranasal sinuses grossly clear. IMPRESSION: 1. Postoperative changes, status post interval bilateral subdural hematoma evacuation with extraaxi al collections and pneumocephalus, right greater than left. 2. Decrease in mass effect, with 4 mm leftward midline shift currently. RPTAT: AA .Sarath Downing MD, Date Time Electronically viewed and signed by .Sarath Downing MD, MD on 04/06/2017 09:22 .O/
[2017-04-06] MEDS ORDERED: ALBUTEROL/IPRATROPIUM (NEB) 3 ML AMP HHN PRN (09:30)
--- NOTE | 2017-04-06 10:10 | PN ---
DATE: 04/06/2017 TIME: 0845 AM SUBJECTIVE DATA: Complains of headache. OBJECTIVE DATA: VITAL SIGNS: Temperature 98.8, pulse rate 66, respiratory rate 12, blood pressure 131/72, oxygen saturation 100% on room air. GENERAL: This is a well-nourished male patient lying in bed in no apparent distress. HEENT: Head normocephalic. Bilateral maurice holes present. Nasal septum is midline. Oral mucosa is moist. NECK: Supple. No JVD noticed. RESPIRATORY: Bilaterally clear to auscultation. No adventitious breath sounds. No use of accessory muscles of respiration. CARDIAC: Regular rate and rhythm. No murmurs heard. ABDOMEN: Soft, nontender and nondistended. Bowel sounds positive in all 4 quadrants. GENITOURINARY: Deferred. EXTREMITIES: No cyanosis, no clubbing, no edema. Peripheral pulses are palpable. NEUROLOGIC: The patient is awake, alert and oriented. Cranial nerves are grossly intact. The patient moves all 4 extremities. LABORATORY AND DIAGNOSTIC DATA: WBC 8.7, hemoglobin 11.7, hematocrit 34.2, platelet count 286. Sodium 143, potassium 3.6, chloride 114, carbon dioxide 27 , anion gap 6, BUN 40, creatinine 0.72, glucose 100, calcium 8.0. Latest brain CT scan on 04/06/2017. Postoperative changes, status post interval bilateral subdural hematoma evacuation with extraaxial collections and pneumocephalus, right greater than left. Decreased in mass effect, with 4 mm leftward of midline shift currently. ASSESSMENT: 1. Bilateral subdural hematoma. Status post maurice hole and evacuation of right and left subdural hematoma. Continue pain control. Management of surgical drain as per neurosurgery. Continue prophylactic anticonvulsants. 2. Essential hypertension. The patient on p.r.n. antihypertensives. The patient will also be started on routine antihypertensives. 3. Dyslipidemia. The patient's fasting lipid panel was satisfactory. The patient will be resumed on gemfibrozil. 4. Asthma. No evidence of any bronchospasms. The patient's routine inhalers will be resumed. The patient will also be started on p.r.n. inhaled bronchodilators for any acute bronchospasm. 5. Fluids, electrolytes and nutrition. Regular diet. 6. Deep venous thrombosis prophylaxis with bilateral sequential compression devices. 7. Gastrointestinal prophylaxis. Proton pump inhibitors. PLAN: 1. Continue intensive care monitoring. 2. Continue frequent neuro checks. 3. Continue pain control. Case discussed with Dr. Vences. The plan of care was explained to the patient's family who was at the bedside. CRITICAL CARE TIME: 35 minutes. DORIAN VENCES MD, AM/CIELO Conf#: [id number] DID#: [id number] MTDD
--- NOTE | 2017-04-06 11:00 | RADRPT ---
PROCEDURE: Skull series CLINICAL INDICATION: Headache TECHNIQUE: AP and lateral views of the skull COMPARISON: None FINDINGS: There is a left-sided ventricular shunt seen which extends into the medial left skull. Bilateral carmona rgical changes of the scalp are present with skin janis. Metallic surgical material is seen in th e areas of the cranial ostomy sites. There is no radiographic evidence of fracture. RPTAT: AA IMPRESSION: Surgical changes of the skull are seen with surgical metallic fragments at the areas of cranial osto my sites. There is a left-sided ventriculostomy tube. Skin janis are present. .Lyric Posey MD, MD Date Time Electronically viewed and signed by .Lyric Posey MD, on 04/06/2017 11:00 .Harvey/
[2017-04-06] MEDS: SALMETEROL/FLUTICASONE 250/50 INHA INH SCH (21:14)
[2017-04-06] MEDS: GEMFIBROZIL 600 MG TAB PO SCH (21:14)
[2017-04-07] VITALS (21 sets, daily range): BP systolic 80–170; BP diastolic 71–98; PULSE 75–92; RESP 11–21
[2017-04-07] MEDS: D5-NS + KCL 20 MEQ 1,000 ML IV SCH (01:30)
[2017-04-07] MEDS: ZOLPIDEM 5 MG TAB PO PRN ×2 (01:46→20:25)
[2017-04-07 05:01] LABS: ADD SCAN DIFF NO
[2017-04-07 05:07] LABS: BASOPHILS % 0.4 % (0.0-2.0); EOSINOPHILS # 0.4 10^3/ul (0.0-0.5); EOSINOPHILS % 5.1 % (0.0-7.0); HEMATOCRIT 33.6 % (42.0-52.0); HEMOGLOBIN 11.5 g/dl (14.0-18.0); LYMPHOCYTES # 1.7 10^3/ul (0.8-2.9); LYMPHOCYTES % 21.1 % (15.0-51.0); MEAN CORPUSCULAR HEMOGLOBIN 32.4 pg (29.0-33.0); MEAN CORPUSCULAR HGB CONC 34.2 g/dl (32.0-37.0); MEAN CORPUSCULAR VOLUME 94.6 fl (82.0-101.0); MEAN PLATELET VOLUME 10.3 fl (7.4-10.4); MONOCYTE # 0.7 10^3/ul (0.3-0.9); MONOCYTES % 8.5 % (0.0-11.0); NEUTROPHIL # 5.3 10^3/ul (1.6-7.5); NEUTROPHILS % 64.5 % (39.0-77.0); PLATELET COUNT 265 10^3/UL (140-415); RED BLOOD COUNT 3.55 10^6/ul (4.70-6.10); RED CELL DISTRIBUTION WIDTH 11.9 % (11.5-14.5); WHITE BLOOD COUNT 8.2 10^3/ul (4.8-10.8)
[2017-04-07 05:29] LABS: PHOSPHORUS 2.8 mg/dl (2.5-4.9)
[2017-04-07] MEDS: CEFAZOLIN 2 GM/50 ML (PMX) 50 ML IVPB SCH ×3 (05:38→21:00)
[2017-04-07] MEDS: PANTOPRAZOLE (EC) 40 MG TAB PO SCH (05:38)
[2017-04-07 05:40] LABS: CALCIUM 8.5 mg/dl (8.4-10.2); CREATININE 0.76 mg/dl (0.61-1.24); POTASSIUM 3.6 mmol/L (3.5-5.1)
--- NOTE | 2017-04-07 08:21 | PN ---
Date/Time of Note Date/Time of Note DATE: 04/07/17 TIME: 08:18 Assessment/Plan Lines/Catheters IV Catheter Type (from [facility]): A Line Acharya in Place (from [facility]): Yes Assessment/Plan Chief Complaint/Hosp Course 66 year-old male POD #2 s/p bilateral maurice holes for bilateral subacute subdural hematomas. Neurologically stable, non-focal exam. Drains D/C'd. Ok to transfer to floor. D/C Acharya (rec. straight cath/ bethanocol rather than recath if retention) H/L IV- taking adequate PO. PT, ambulate. OK home today if medically cleared. f/u 8-12 days in clinic for suture removal. Patient not to take any NSAIDs or ASA. Problems: Subjective 24 Hr Interval Summary Patient doing well. Denies headache, nausea or vomiting. Denies weakness, fever or chills. Exam/Review of Systems Vital Signs Vitals Vital Signs Date Time Temp Pulse Resp B/P Pulse Ox O2 Delivery O2 Flow Rate FiO2 04/07/17 06:00 92 20 155/87 96 Room Air 04/07/17 04:00 98.6 04/06/17 13:10 21 04/06/17 07:28 2.0 Intake and Output 04/06/17 04/06/17 04/07/17 15:00 23:00 07:00 Intake Total 100 ml 1010 ml 600 ml Output Total 400 ml 1075 ml 975 ml Balance -300 ml -65 ml -375 ml Exam Constitutional: alert, oriented Psych: no complaints Eyes: EOMI, PERRL Neurological: DIRECTOR PRIVATE II-XII intact, nl mental status, nl speech, nl strength Results Result Diagram: 04/07/170 04/07/17399 PATRICIA HIGUERA MD April 07, 2017 08:21
[2017-04-07] MEDS: SALMETEROL/FLUTICASONE 250/50 INHA INH SCH ×2 (09:58→20:22)
[2017-04-07] MEDS: morphine 2 MG INJ IV PRN (10:01)
[2017-04-07] MEDS: LEVETIRACETAM 500 MG (PMX) 100 ML IVPB SCH ×2 (10:01→20:22)
[2017-04-07] MEDS: GEMFIBROZIL 600 MG TAB PO SCH ×2 (10:01→20:22)
--- NOTE | 2017-04-07 11:45 | PN ---
Date/Time of Note Date/Time of Note DATE: 04/07/17 TIME: 11:36 Assessment/Plan VTE Prophylaxis VTE Prophylaxis Intervention: SCD's Lines/Catheters IV Catheter Type (from Nrs): A Line Urinary Cath still in place: No Assessment/Plan Chief Complaint/Hosp Course ASSESSMENT: 1. Bilateral subdural hematoma. Status post maurice hole and evacuation of right and left subdural hematoma. Continue pain control. Placement of surgical drain as per neurosurgery. Continue prophylactic anticonvulsants. PT OT eval and treat 2. Essential hypertension. Well-controlled , continue medical management 3. Dyslipidemia. Continue gemfibrozil. 4. Asthma. No evidence of any bronchospasms. The patient's routine inhalers will be resumed. Deep venous thrombosis prophylaxis with bilateral sequential compression devices. Not a candidate for pharmacologic DVT prophylaxis secondary to subdural hematoma Gastrointestinal prophylaxis. Proton pump inhibitors. We will continue monitor patient closely for recommendation management treatment as clinical course Transferred to telemetry if cleared by neurosurgery PLAN: 1. Continue intensive care, monitoring. 2. Continue frequent neuro checks. 3. Continue pain control. Case discussed with Dr. Cullen. The plan of care was explained to the patient's family who was at the bedside. Problems: Subjective 24 Hr Interval Summary Free Text/Dictation Patient denies of any headache or dizziness Is awake alert and able to follow commands He has been clear as per neurosurgery to be transferred to telemetry He has been able to tolerate oral intake Denies of any numbness or weakness in his extremities Exam/Review of Systems Vital Signs Vitals Vital Signs Date Time Temp Pulse Resp B/P Pulse Ox O2 Delivery O2 Flow Rate FiO2 04/07/17 08:00 83 04/07/17 06:00 20 155/87 96 Room Air 04/07/17 04:00 98.6 04/06/17 13:10 21 04/06/17 07:28 2.0 Intake and Output 04/06/17 04/06/17 04/07/17 15:00 23:00 07:00 Intake Total 100 ml 1010 ml 600 ml Output Total 400 ml 1075 ml 975 ml Balance -300 ml -65 ml -375 ml Exam General: The patient is well-developed, Not in acute distress. HEENT: Atraumatic, cephalic surgical site is dry and clean no evidence of hematoma. The pupils are equal and round . Neck: Supple with full range of motion. Chest: Normal expansion of the thorax during inspiration Lungs: Clear to auscultation bilaterally Heart: Normal S1-S2, Regular rhythm and rate. Abdomen: Soft , nontender, nondistended , bowel sounds are present. Extremities: Normal to inspection, no edema no cyanosis Neurologic: Normal mental status,The patient is awake, alert and oriented . Results Result Diagram: 04/07/17 0400 04/07/17 0400 Results 24 hrs Laboratory Tests Test 04/07/17 04:00 White Blood Count 8.2 Red Blood Count 3.55 L Hemoglobin 11.5 L Hematocrit 33.6 L Mean Corpuscular Volume 94.6 Mean Corpuscular Hemoglobin 32.4 Mean Corpuscular Hemoglobin Concent 34.2 Red Cell Distribution Width 11.9 Platelet Count 265 Mean Platelet Volume 10.3 Neutrophils % 64.5 Lymphocytes % 21.1 Monocytes % 8.5 Eosinophils % 5.1 Basophils % 0.4 Nucleated Red Blood Cells % 0.0 Neutrophils # 5.3 Lymphocytes # 1.7 Monocytes # 0.7 Eosinophils # 0.4 Basophils # 0.0 Nucleated Red Blood Cells # 0.0 Sodium Level 137 Potassium Level 3.6 Chloride Level 107 Carbon Dioxide Level 26 Anion Gap 8 Blood Urea Nitrogen 15 Creatinine 0.76 Glucose Level 98 Calcium Level 8.5 Phosphorus Level 2.8 Magnesium Level 2.0 Medications Medications Current Medications Ondansetron HCl (Zofran Inj) 4 mg Q6H PRN IV NAUSEA AND/OR VOMITING; Start at 12:30 Docusate Sodium (Colace) 100 mg Q12H PRN PO CONSTIPATION; Start 04/04/17 at 12: 30 Zolpidem Tartrate 5 mg 5 mg QHS PRN PO SLEEP Last administered on 04/07/17 01: 46; Admin Dose 5 MG; Start 04/04/17 at 12:30 Levetiracetam (Keppra 500 Mg/ 100ml (Pmx)) 100 ml @ 400 mls/hr Q12 IVPB Last administered on 04/07/17 10:01; Admin Dose 400 MLS/HR; Start 04/04/17 at 21:00 Labetalol HCl 20 mg 20 mg Q2H PRN IV SBP >150 Last administered on 04/05/17 13 :15; Admin Dose 20 MG; Start 04/04/17 at 14:30 Cefazolin Sodium/ Dextrose (Ancef 2 Gm/50 ml (Pmx)) 50 ml @ 100 mls/hr Q8 IVPB Last administered on 04/07/17 05:38; Admin Dose 100 MLS/HR; Start 04/05/17 at 19:00 Morphine Sulfate (morphine) 2 mg Q2H PRN IV PAIN LEVEL 6-10 Last administered on 04/07/17 10:01; Admin Dose 2 MG; Start 04/05/17 at 17:00 Acetaminophen/ Hydrocodone Bitart ([place] (5/325)) 1 tab Q6H PRN PO PAIN LEVEL 6 -10 Last administered on 04/06/17 23:11; Admin Dose 1 TAB; Start 04/05/17 at 17 :00 Acetaminophen (Tylenol Tab) 650 mg Q6H PRN PO PAIN AND OR ELEVATED TEMP; Start 04/05/17 at 17:00 Diphenhydramine HCl (Benadryl) 25 mg Q6H PRN IV ITCHING; Start 04/05/17 at 17: 00 Diphenhydramine HCl (Benadryl) 25 mg Q6H PRN PO ITCHING; Start 04/05/17 at 17: 00 Pantoprazole (Protonix Tab) 40 mg DAILY@06 PO Last administered on 04/07/17 05 :38; Admin Dose 40 MG; Start 04/05/17 at 18:00 Phenol (Cepastat Lozenge) 1 lozenge PRN PRN MT SORE THROAT; Start 04/05/17 at 17:00 Gemfibrozil (Lopid) 600 mg BID PO Last administered on 04/07/17 10:01; Admin Dose 600 MG; Start 04/06/17 at 21:00 Salmeterol Xinafoate/ Fluticasone (Advair 250/50 Diskus) 1 inh BID INH Last administered on 04/06/17 21:14; Admin Dose 1 INH; Start 04/06/17 at 21:00 BALDO TAPIA MD April 07, 2017 11:45
[2017-04-07] MEDS: LABETALOL HCL 20MG INJ IV PRN (12:02)
[2017-04-07] MEDS: HYDROCODONE/APAP (5/325) TAB PO PRN (12:35)
[2017-04-08] VITALS (10 sets, daily range): BP systolic 124–159; BP diastolic 70–85; PULSE 68–92; RESP 16–18
[2017-04-08] MEDS: CEFAZOLIN 2 GM/50 ML (PMX) 50 ML IVPB SCH ×2 (05:02→13:23)
[2017-04-08] MEDS: PANTOPRAZOLE (EC) 40 MG TAB PO SCH (05:02)
[2017-04-08 07:32] LABS: ADD SCAN DIFF NO
[2017-04-08 07:48] LABS: BASOPHILS % 0.4 % (0.0-2.0); EOSINOPHILS # 0.3 10^3/ul (0.0-0.5); EOSINOPHILS % 4.2 % (0.0-7.0); HEMATOCRIT 35.7 % (42.0-52.0); HEMOGLOBIN 12.2 g/dl (14.0-18.0); LYMPHOCYTES # 1.3 10^3/ul (0.8-2.9); LYMPHOCYTES % 16.4 % (15.0-51.0); MEAN CORPUSCULAR HGB CONC 34.2 g/dl (32.0-37.0); MEAN CORPUSCULAR VOLUME 93.7 fl (82.0-101.0); MEAN PLATELET VOLUME 9.9 fl (7.4-10.4); MONOCYTE # 0.6 10^3/ul (0.3-0.9); MONOCYTES % 6.9 % (0.0-11.0); NEUTROPHIL # 5.8 10^3/ul (1.6-7.5); NEUTROPHILS % 71.9 % (39.0-77.0); PLATELET COUNT 295 10^3/UL (140-415); RED BLOOD COUNT 3.81 10^6/ul (4.70-6.10); RED CELL DISTRIBUTION WIDTH 11.8 % (11.5-14.5); WHITE BLOOD COUNT 8.1 10^3/ul (4.8-10.8)
[2017-04-08 07:54] LABS: POTASSIUM 3.8 mmol/L (3.5-5.1)
[2017-04-08 07:57] LABS: CREATININE 0.72 mg/dl (0.61-1.24)
[2017-04-08 07:58] LABS: CALCIUM 9.1 mg/dl (8.4-10.2)
[2017-04-08 08:07] LABS: PHOSPHORUS 3.6 mg/dl (2.5-4.9)
[2017-04-08] MEDS: LEVETIRACETAM 500 MG (PMX) 100 ML IVPB SCH (08:34)
[2017-04-08] MEDS: GEMFIBROZIL 600 MG TAB PO SCH (08:35)
[2017-04-08] MEDS: SALMETEROL/FLUTICASONE 250/50 INHA INH SCH (08:36)
--- NOTE | 2017-04-08 08:45 | PN ---
Date/Time of Note Date/Time of Note DATE: 04/08/17 TIME: 08:42 Assessment/Plan Lines/Catheters IV Catheter Type (from [facility]): Saline Lock Acharya in Place (from [facility]): No Assessment/Plan Chief Complaint/Hosp Course 66 year-old male POD #3 s/p bilateral maurice holes for bilateral subacute subdural hematomas. Neurologically stable, non-focal exam. Bowel program. H/L IV- taking adequate PO. PT, ambulate. OK home today if medically cleared. f/u 8-12 days in clinic for suture removal. Patient not to take any NSAIDs or ASA. Problems: Subjective 24 Hr Interval Summary Patient without complaints except constipation. Denies headache, nausea, vomiting or weakness. Exam/Review of Systems Vital Signs Vitals Vital Signs Date Time Temp Pulse Resp B/P Pulse Ox O2 Delivery O2 Flow Rate FiO2 04/08/17 08:40 80 04/08/17 07:34 98.0 16 134/74 97 04/07/17 16:00 Room Air 04/06/17 13:10 21 04/06/17 07:28 2.0 Intake and Output 04/07/17 04/07/17 04/08/17 15:00 23:00 07:00 Intake Total 350 ml Output Total 950 ml 250 ml 700 ml Balance -950 ml -250 ml -350 ml Exam Constitutional: alert, oriented Psych: nl mood/affect, no complaints Head: normocephalic, other (incisions C/d/I) Eyes: EOMI Neurological: RN TRAINING II-XII intact, nl mental status, nl speech, nl strength Results Result Diagram: 04/08/17 0653 04/08/17 0653 PATRICIA HIGUERA MD April 08, 2017 08:45
[2017-04-08] MEDS ORDERED: BISACODYL 10 MG SUPP PR PRN (09:00)
[2017-04-08] MEDS ORDERED: NA PHOSPHATE/BIPHOS 133 ML ENEMA PR PRN (09:00)
--- NOTE | 2017-04-08 14:18 | PDOCDIS ---
Discharge Instructions CONDITION Patient Condition: Good HOME CARE INSTRUCTIONS: Special Diet: cardiac ACTIVITY: Activity Restrictions: Slowly Increase Activity Rest between Activity Avoid heavy lifting Avoid Heavy Housework FOLLOW UP/APPOINTMENTS Appointments Follow up with Neurosurgery in 7-10 days BALDO TAPIA MD April 08, 2017 14:17
[2017-04-08] MEDS ORDERED: LEVE-5 PO (14:20)
--- NOTE | 2017-04-08 15:32 | DS ---
DATE OF ADMISSION: 04/04/2017 DATE OF DISCHARGE: 04/08/2017 [employer] AGENT: Dr. Nirav Blankenship. PROCEDURE: Bur hole for evacuation of right and left subdural hematoma. DIAGNOSES: 1. Bilateral subacute subdural hematoma status post bur hole for evacuation of right and left subdu ral hematoma on 04/05/2017. 2. Essential hypertension, well controlled on medical management. 3. Dyslipidemia. Continue gemfibrozil. 4. Asthma. Continue inhalers. MEDICATIONS: 1. Keppra 500 mg. 2. ProAir HFA. 3. Aspirin 81 mg. 4. Gemfibrozil 600 mg. 5. Loratadine 10 mg. 6. Losartan 25 mg. 7. Advair 250/50. ALLERGIES: NO KNOWN DRUG ALLERGIES. DISPOSITION: Home. HOSPITAL COURSE: This is a 66-year-old gentleman with past medical history of hypertension, dyslipi demia, and COPD who presented to Emergency Room at [facility] 04/04/2017 secondary to having headache, dizziness x2 days. The headache is generalized, not accompanied with nausea an d vomiting. Yesterday he hit his head as they were walking. He did not fall, just hit his head on top of overpass while he was walking. The patient presented to ER secondary to continuous headache. The CT of the brain showed bilateral subacute subdural hematoma. There was some subfalcine hernia tion to the right cingulate gyrus and 5 mm left midline shift, and there is chronic right cerebral i nfarct noted. Neurosurgeon was consulted, and surgical intervention was recommended after discussin g the mode of treatment with the patient. The patient was taken to OR on 03/28/2017 for a bur hole for evacuation of right and left subdural hematoma. The patient tolerated the procedure well and wa s taken to recovery room, and then he was monitored in ICU. His blood pressure was stabilized with IV and p.r.n. medication such as labetalol and hydralazine. The patient was also placed on cefazoli n postoperatively. He was placed on Keppra for seizure prophylaxis. On 04/07/2017, the patient was cleared, as per neurosurgery, to be transferred to telemetry floor. The patient has been able to t olerate his oral intake after he was seen and evaluated by the speech therapy, and he has been able to ambulate without any difficulty after evaluation by physical therapy. As per physical therapy, t he patient is cleared for discharge. Neurosurgery evaluated the patient also and has cleared the pa tient from the surgical standpoint. The patient is to follow up with him in 7 to 10 days. The immanuel ent, at this time, is medically stable to be discharged home. His vitals have been stable with temp erature 97.9, pulse 74, respiration rate 16, blood pressure 128/77, oxygen saturation 98% in room ai r. In case of having any headache, dizziness, lightheadedness, change in visual acuity, the patient needs to return to emergency room immediately. Dictated By: BALDO NEVILLE/NTS Conf#: [id number] DID#: [id number]
== END 2017-04-08 16:55 | disposition home or self-care (01) | DRG 25 ==
LOC: FTE 06:33 → ICU 09:46 → TEL 04-07 19:05
PROVIDERS: ADMIT Internal Medicine; ATTEND Internal Medicine
PROC: 009430Z Drainage of Intracranial Subdural Space with Drainage Device, Percutaneous Approach (ICD-10-PCS; 2017-04-05)
PROC: 009430Z Drainage of Intracranial Subdural Space with Drainage Device, Percutaneous Approach (ICD-10-PCS; principal; 2017-04-05 14:00)
DX: S06.5X0A Traumatic subdural hemorrhage without loss of consciousness, initial encounter (principal); G93.5 Compression of brain; J44.9 Chronic obstructive pulmonary disease, unspecified; I10 Essential (primary) hypertension; X58.XXXA Exposure to other specified factors, initial encounter; E78.5 Hyperlipidemia, unspecified; J45.909 Unspecified asthma, uncomplicated; Z79.82 Long term (current) use of aspirin; Z86.73 Personal history of transient ischemic attack (TIA), and cerebral infarction without residual deficits
CPT/HCPCS: 36415; 36430; 70260; 70450; 70551; 71010; 80048; 80053; 80061; 83036; 83735; 84100; 85025; 85576; 85610; 85730; 86644; 86850; 86900; 86901; 87081; 93005; 96374; 96375; 96376; 97162; C1713; J0360; J0690; J1100; J1644; J1953; J2270; J2405; J2710; J3010; J3480; J7040; J7042; J7999; P9035